=== PATIENT | female | born 1940 | race Caucasian/White ===

== ENCOUNTER 2016-07-27 22:10 | Emergency (ER) | payer MEDICARE, OTHER ==
[~2016-07-27] VITALS: Ht 152.4 cm; Wt 65.0 kg
[~2016-07-27 22:10] MED LIST: AMIO200T42 PO; ATOR20TA9 PO; CARV3.1212 PO; CARV3.122 PO; FURO-92 PO; GUAI600T22 PO; GUAI600T53; LISI5TAB7 PO; NYST1POW2 EXT; RIVA15TA PO; SPIR50TA2 PO
[2016-07-27] MEDS ORDERED: CARVEDILOL (22:29)
[2016-07-27] MEDS ORDERED: COMBIVENT (22:29)
[2016-07-27] MEDS ORDERED: ELIQUIS (22:29)
[2016-07-27 22:56] LABS: BLOOD UREA NITROGEN 29 mg/dL (7-18)
[2016-07-27 23:16] LABS: PATH.CAST-FLAG NOT PRESENT; SPERM-FLAG NOT PRESENT; SRC-FLAG NOT PRESENT; XTAL-FLAG NOT PRESENT; YLC-FLAG NOT PRESENT
[2016-07-27] MEDS ORDERED: CIPROFLOXACIN 500 MG TABLET PO ONE (23:30)
[2016-07-28] MEDS ORDERED: CIPROFLOXACIN 500 MG TABLET ONE (00:05)
[2016-07-28 00:24] VITALS: BP 101/67
== END 2016-07-28 00:27 | disposition home or self-care (01) ==
LOC: ED 23:59
DX: G30.1 Alzheimer's disease with late onset (principal); F02.81 Dementia in other diseases classified elsewhere, unspecified severity, with behavioral disturbance; N30.00 Acute cystitis without hematuria; R41.82 Altered mental status, unspecified
CPT/HCPCS: 36415; 80048; 81001; 82040; 85025; 87077; 87086; 87186; 99284

== ENCOUNTER 2017-06-11 21:52 | Emergency (ER) | payer MEDICARE, BC ==
[~2017-06-11] VITALS: Ht 160 cm; Wt 81.0 kg
[~2017-06-11 21:52] MED LIST changes: +ALBU2.5V NPPB; +APIX2.5T PO; +APIX5TAB PO; +CARV6.2512 PO; +CARVEDILOL; +CEFD300C37 PO; +COMBIVENT; +ELIQUIS; +FAMO20TA7 PO; +FURO-93 PO; +FURO20TA3 PO; -GUAI600T22 PO; +GUAI600T31 PO; -GUAI600T53; +GUAI600T80; +METO25TA35 PO; +POLY17PO5 PO; +PRED5TAB PO; +SPIR100T2 PO; +SPIR25TA PO
[2017-06-11 22:13] VITALS: BP 120/74
[2017-06-11 22:35] LABS: BASOPHILS # (AUTO) 0.01 x10^3/uL (0-0.1); BASOPHILS % (AUTO) 0 % (0-1); EOSINOPHILS # (AUTO) 0.03 x10^3/uL (0-0.4); EOSINOPHILS % (AUTO) 1 % (1-7); LYMPHOCYTES # (AUTO) 0.56 x10^3/uL (1-3.4); LYMPHOCYTES % (AUTO) 8 % (22-44); MD NO; MEAN CORPUSCULAR HEMOGLOBIN 32.7 pg (27.0-34.8); MEAN CORPUSCULAR HGB CONC 33.5 g/dL (32.4-35.8); MEAN CORPUSCULAR VOLUME 97.7 fL (80-100); MEAN PLATELET VOLUME 8.7 fL (7.4-10.4); MONOCYTES # (AUTO) 0.51 x10^3/uL (0.2-0.8); MONOCYTES % (AUTO) 7 % (2-9); NEUTROPHILS % (AUTO) 85 % (42-75); PLATELET COUNT 206 x10^3/uL (130-400); RED BLOOD COUNT 4.29 x10^6/uL (3.82-5.3); RED CELL DISTRIBUTION WIDTH 15.6 % (9.6-15.2)
[2017-06-11 22:41] LABS: INTERNATIONAL NORMALIZED RATIO 1.05 (0.93-1.1); PROTHROMBIN TIME 10.9 Seconds (9.6-11.5)
[2017-06-11 22:43] LABS: ALANINE AMINOTRANSFERASE 12 U/L (12-78); ALBUMIN 3.4 g/dL (3.4-5.0); ANION GAP 7 mmol/L (5-15); CALCIUM 9.3 mg/dL (8.5-10.1); CHLORIDE 109 mmol/L (98-107); CREATININE 0.89 mg/dL (0.55-1.02)
[2017-06-11 22:46] LABS: ALKALINE PHOSPHATASE 75 U/L (45-117); BILIRUBIN,TOTAL 1.2 mg/dL (0.2-1.0); TOTAL PROTEIN 6.8 g/dL (6.4-8.2)
[2017-06-11] MEDS ORDERED: METOPROLOL 1 MG/ML, 5ML ONE (22:48)
[2017-06-11 22:56] LABS: MICROSCOPIC NOT IND
[2017-06-11 22:58] LABS: CULTURE INDICATED? NO
[2017-06-11] MEDS ORDERED: METOPROLOL 1 MG/ML, 5ML IVPush PRN (23:00)
== END 2017-06-12 01:05 | disposition home or self-care (01) ==
LOC: ED 22:50
DX: R41.82 Altered mental status, unspecified (principal); R53.1 Weakness; Z86.73 Personal history of transient ischemic attack (TIA), and cerebral infarction without residual deficits; I48.91 Unspecified atrial fibrillation
CPT/HCPCS: 36415; 70450; 71045; 80053; 81003; 85025; 85610; 85730; 93005; 96374

== ENCOUNTER 2017-09-01 12:19 | Inpatient (IN) | payer MEDICARE, BC ==
[~2017-09-01] VITALS: Ht 167.6 cm; Wt 62.3 kg
[2017-09-01] MEDS ORDERED: SODIUM CHLORIDE 0.9% 1,000ML IVBOLUS ONE (12:30)
[2017-09-01] MEDS ORDERED: PLEASE ENTER HEIGHT AND WEIGHT MC SCH (12:30)
[2017-09-01] MEDS ORDERED: SODIUM CHLORIDE FLUSH 10ML SYR IVF ONE (12:30)
[2017-09-01 13:08] LABS: BASOPHILS # (AUTO) 0.01 x10^3/uL (0-0.1); BASOPHILS % (AUTO) 0 % (0-1); EOSINOPHILS # (AUTO) 0.04 x10^3/uL (0-0.4); EOSINOPHILS % (AUTO) 1 % (1-7); LYMPHOCYTES # (AUTO) 0.41 x10^3/uL (1-3.4); LYMPHOCYTES % (AUTO) 5 % (22-44); MD NO; MEAN CORPUSCULAR HEMOGLOBIN 30.2 pg (27.0-34.8); MEAN CORPUSCULAR HGB CONC 32.2 g/dL (32.4-35.8); MEAN CORPUSCULAR VOLUME 93.9 fL (80-100); MEAN PLATELET VOLUME 8.9 fL (7.4-10.4); MONOCYTES # (AUTO) 0.77 x10^3/uL (0.2-0.8); MONOCYTES % (AUTO) 9 % (2-9); NEUTROPHILS # (AUTO) 7.59 x10^3/uL (1.8-6.8); NEUTROPHILS % (AUTO) 86 % (42-75); PLATELET COUNT 240 x10^3/uL (130-400); RED BLOOD COUNT 3.68 x10^6/uL (3.82-5.3); RED CELL DISTRIBUTION WIDTH 16.4 % (9.6-15.2)
[2017-09-01 13:16] LABS: ALANINE AMINOTRANSFERASE 12 U/L (12-78); ALBUMIN 1.9 g/dL (3.4-5.0); ANION GAP 6 mmol/L (5-15); CALCIUM 7.9 mg/dL (8.5-10.1); CHLORIDE 112 mmol/L (98-107); CREATININE 0.63 mg/dL (0.55-1.02)
[2017-09-01 13:20] LABS: ALKALINE PHOSPHATASE 80 U/L (45-117); BILIRUBIN,TOTAL 0.7 mg/dL (0.2-1.0); TOTAL PROTEIN 5.4 g/dL (6.4-8.2)
[2017-09-01] MEDS ORDERED: CEFTRIAXONE PMX 1GM/50ML 50 ML IV ONE (16:30)
[2017-09-01] MEDS ORDERED: SODIUM CHLORIDE FLUSH 10ML SYR IVF PRN (17:00)
[2017-09-01 17:52] LABS: BASOPHILS # (AUTO) 0.02 x10^3/uL (0-0.1); BASOPHILS % (AUTO) 0 % (0-1); EOSINOPHILS # (AUTO) 0.11 x10^3/uL (0-0.4); EOSINOPHILS % (AUTO) 1 % (1-7); LYMPHOCYTES # (AUTO) 0.53 x10^3/uL (1-3.4); LYMPHOCYTES % (AUTO) 7 % (22-44); MD NO; MEAN CORPUSCULAR HGB CONC 31.8 g/dL (32.4-35.8); MEAN CORPUSCULAR VOLUME 94.4 fL (80-100); MEAN PLATELET VOLUME 9.1 fL (7.4-10.4); MONOCYTES # (AUTO) 0.61 x10^3/uL (0.2-0.8); MONOCYTES % (AUTO) 8 % (2-9); NEUTROPHILS # (AUTO) 6.66 x10^3/uL (1.8-6.8); NEUTROPHILS % (AUTO) 84 % (42-75); PLATELET COUNT 231 x10^3/uL (130-400); RED BLOOD COUNT 4.04 x10^6/uL (3.82-5.3); RED CELL DISTRIBUTION WIDTH 16.5 % (9.6-15.2)
[2017-09-01 17:55] LABS: ANION GAP 4 mmol/L (5-15); CHLORIDE 111 mmol/L (98-107); CREATININE 0.59 mg/dL (0.55-1.02)
[2017-09-01 20:00] VITALS: BP 98/67
[2017-09-01] MEDS: LACTATED RINGERS 1,000 ML IV SCH (20:14)
[2017-09-01] MEDS: PIPERACILLIN/TAZO/PMX 4.5GM 100 ML IV SCH (20:29)
[2017-09-01] MEDS ORDERED: APIXABAN 5 MG TABLET PO SCH (21:00)
[2017-09-01] MEDS: ATORVASTATIN 40 MG TABLET PO SCH (22:39)
[2017-09-01 23:45] LABS: CLOSTRIDIUM DIFFICILE ANTIGEN POSITIVE; CLOSTRIDIUM DIFFICILE TOXIN POSITIVE (Negative)
[2017-09-02] MEDS: PIPERACILLIN/TAZO/PMX 4.5GM 100 ML IV SCH ×3 (00:54→17:52)
[2017-09-02] MEDS: METRONIDAZOLE PMX 500MG/100ML 100 ML IV SCH ×3 (01:35→17:52)
[2017-09-02 01:57] VITALS: BP 100/69
[2017-09-02] MEDS ORDERED: ACET325S PO (06:11)
[2017-09-02] MEDS ORDERED: METO5AMP2 PO (06:11)
[2017-09-02] MEDS ORDERED: POTA20TA14 PO (06:11)
[2017-09-02] MEDS ORDERED: FLUT1AER INH (06:11)
[2017-09-02] MEDS ORDERED: MAGN400O7 PO (06:17)
[2017-09-02] MEDS ORDERED: TRAM100C3 PO (06:17)
[2017-09-02] MEDS: LACTATED RINGERS 1,000 ML IV SCH (06:24)
[2017-09-02 07:20] VITALS: BP 99/58
[2017-09-02 07:24] VITALS: BP 99/70
[2017-09-02] MEDS ORDERED: FUROSEMIDE 20 MG TABLET PO SCH (09:00)
[2017-09-02] MEDS ORDERED: OMNIPAQUE 350 MG/ML, 100ML BOTTLE ONE (10:17)
[2017-09-02 15:05] VITALS: BP 102/71
[2017-09-02] MEDS: NS + 20MEQ KCL 1,000 ML IV SCH (15:40)
[2017-09-02] MEDS: ENOXAPARIN 60 MG/0.6 ML SQ SCH (15:40)
[2017-09-02 20:13] VITALS: BP 105/73
[2017-09-02] MEDS: ATORVASTATIN 40 MG TABLET PO SCH (21:00)
[2017-09-03] MEDS: PIPERACILLIN/TAZO/PMX 4.5GM 100 ML IV SCH ×3 (00:47→17:38)
[2017-09-03] MEDS: METRONIDAZOLE PMX 500MG/100ML 100 ML IV SCH ×3 (01:49→19:14)
[2017-09-03 01:51] VITALS: BP 94/63
[2017-09-03] MEDS: ENOXAPARIN 60 MG/0.6 ML SQ SCH ×2 (04:14→17:38)
[2017-09-03 05:23] LABS: BASOPHILS # (AUTO) 0.06 x10^3/uL (0-0.1); BASOPHILS % (AUTO) 1 % (0-1); CALCIUM 8.5 mg/dL (8.5-10.1); CHLORIDE 112 mmol/L (98-107); EOSINOPHILS # (AUTO) 0.18 x10^3/uL (0-0.4); EOSINOPHILS % (AUTO) 3 % (1-7); LYMPHOCYTES # (AUTO) 0.38 x10^3/uL (1-3.4); LYMPHOCYTES % (AUTO) 7 % (22-44); MD NO; MEAN CORPUSCULAR HEMOGLOBIN 30.1 pg (27.0-34.8); MEAN CORPUSCULAR HGB CONC 31.9 g/dL (32.4-35.8); MEAN CORPUSCULAR VOLUME 94.2 fL (80-100); MONOCYTES # (AUTO) 0.41 x10^3/uL (0.2-0.8); MONOCYTES % (AUTO) 7 % (2-9); NEUTROPHILS # (AUTO) 4.57 x10^3/uL (1.8-6.8); NEUTROPHILS % (AUTO) 82 % (42-75); PLATELET COUNT 240 x10^3/uL (130-400); RED BLOOD COUNT 3.74 x10^6/uL (3.82-5.3); RED CELL DISTRIBUTION WIDTH 16.6 % (9.6-15.2)
[2017-09-03 05:27] LABS: ANION GAP 9 mmol/L (5-15); CREATININE 0.47 mg/dL (0.55-1.02)
[2017-09-03] MEDS: NS + 20MEQ KCL 1,000 ML IV SCH (06:24)
[2017-09-03 08:00] VITALS: BP 95/67
[2017-09-03] MEDS: DEXAMETHASONE 4 MG/ML, 1ML IVPush SCH ×3 (09:44→23:34)
[2017-09-03] MEDS: FUROSEMIDE 20 MG/2 ML IV SCH (09:44)
[2017-09-03] MEDS: POTASSIUM CHLORIDE 10 MEQ in D5%-0.45% NACL 1,000 ML IV SCH ×2 (11:08→23:34)
[2017-09-03 15:39] VITALS: BP 108/72
[2017-09-03 19:11] VITALS: BP 104/71
[2017-09-03] MEDS: ATORVASTATIN 40 MG TABLET PO SCH (21:00)
[2017-09-04] MEDS: PIPERACILLIN/TAZO/PMX 4.5GM 100 ML IV SCH ×3 (01:30→17:27)
[2017-09-04 02:12] VITALS: BP 96/68
[2017-09-04] MEDS: METRONIDAZOLE PMX 500MG/100ML 100 ML IV SCH ×3 (02:23→19:53)
[2017-09-04] MEDS: DEXAMETHASONE 4 MG/ML, 1ML IVPush SCH ×2 (05:29→11:40)
[2017-09-04] MEDS: ENOXAPARIN 60 MG/0.6 ML SQ SCH ×2 (05:30→18:47)
[2017-09-04 06:48] VITALS: BP 99/74
[2017-09-04] MEDS: FUROSEMIDE 20 MG/2 ML IV SCH (10:17)
[2017-09-04 15:00] LABS: ALANINE AMINOTRANSFERASE 10 U/L (12-78); ALBUMIN 1.9 g/dL (3.4-5.0); ANION GAP 7 mmol/L (5-15); CALCIUM 9.4 mg/dL (8.5-10.1); CHLORIDE 113 mmol/L (98-107); CREATININE 0.68 mg/dL (0.55-1.02)
[2017-09-04 15:02] LABS: ALKALINE PHOSPHATASE 77 U/L (45-117); BILIRUBIN,TOTAL 0.4 mg/dL (0.2-1.0); TOTAL PROTEIN 5.7 g/dL (6.4-8.2)
[2017-09-04 15:14] VITALS: BP 91/67
[2017-09-04 18:45] VITALS: BP 96/64
[2017-09-04] MEDS: ATORVASTATIN 40 MG TABLET PO SCH (20:53)
[2017-09-04] MEDS: POTASSIUM CHLORIDE 10 MEQ in D5%-0.45% NACL 1,000 ML IV SCH (23:27)
[2017-09-04] MEDS ORDERED: DEXAMETHASONE 4 MG/ML, 1ML IVPush SCH (23:30)
[2017-09-05] MEDS: PIPERACILLIN/TAZO/PMX 4.5GM 100 ML IV SCH ×3 (00:55→17:32)
[2017-09-05 01:04] VITALS: BP 107/74
[2017-09-05] MEDS: METRONIDAZOLE PMX 500MG/100ML 100 ML IV SCH ×3 (03:23→19:44)
[2017-09-05 04:37] LABS: BASOPHILS % (AUTO) 0 % (0-1); EOSINOPHILS % (AUTO) 0 % (1-7); LYMPHOCYTES # (AUTO) 0.28 x10^3/uL (1-3.4); LYMPHOCYTES % (AUTO) 6 % (22-44); MD NO; MEAN CORPUSCULAR HEMOGLOBIN 29.9 pg (27.0-34.8); MEAN CORPUSCULAR HGB CONC 31.9 g/dL (32.4-35.8); MEAN CORPUSCULAR VOLUME 93.9 fL (80-100); MEAN PLATELET VOLUME 8.6 fL (7.4-10.4); MONOCYTES # (AUTO) 0.05 x10^3/uL (0.2-0.8); MONOCYTES % (AUTO) 1 % (2-9); NEUTROPHILS # (AUTO) 4.63 x10^3/uL (1.8-6.8); NEUTROPHILS % (AUTO) 93 % (42-75); PLATELET COUNT 262 x10^3/uL (130-400); RED BLOOD COUNT 3.61 x10^6/uL (3.82-5.3); RED CELL DISTRIBUTION WIDTH 16.3 % (9.6-15.2)
[2017-09-05 06:45] VITALS: BP 111/68
[2017-09-05] MEDS: ENOXAPARIN 60 MG/0.6 ML SQ SCH (09:21)
[2017-09-05] MEDS: FUROSEMIDE 20 MG/2 ML IV SCH (09:21)
[2017-09-05] MEDS: POTASSIUM CHLORIDE 10 MEQ in D5%-0.45% NACL 1,000 ML IV SCH (11:20)
[2017-09-05] MEDS: VANCOMYCIN 50 MG/ML ORAL SUSP PO SCH ×3 (11:49→23:30)
[2017-09-05 16:00] VITALS: BP 109/66
[2017-09-05 18:46] VITALS: BP 98/66
[2017-09-05] MEDS: ATORVASTATIN 40 MG TABLET PO SCH (19:44)
[2017-09-05] MEDS: APIXABAN 5 MG TABLET PO SCH (19:45)
[2017-09-06] MEDS: SODIUM CHLORIDE 0.9% 1,000 ML IV SCH ×3 (00:22→23:59)
[2017-09-06 01:06] VITALS: BP 100/69
[2017-09-06] MEDS: PIPERACILLIN/TAZO/PMX 4.5GM 100 ML IV SCH ×3 (01:18→19:18)
[2017-09-06] MEDS: METRONIDAZOLE PMX 500MG/100ML 100 ML IV SCH ×3 (03:43→20:41)
[2017-09-06] MEDS: VANCOMYCIN 50 MG/ML ORAL SUSP PO SCH ×4 (05:30→23:30)
[2017-09-06 06:03] LABS: BASOPHILS # (AUTO) 0.01 x10^3/uL (0-0.1); BASOPHILS % (AUTO) 0 % (0-1); EOSINOPHILS # (AUTO) 0.04 x10^3/uL (0-0.4); EOSINOPHILS % (AUTO) 1 % (1-7); LYMPHOCYTES # (AUTO) 0.46 x10^3/uL (1-3.4); LYMPHOCYTES % (AUTO) 11 % (22-44); MD NO; MEAN CORPUSCULAR HEMOGLOBIN 29.9 pg (27.0-34.8); MEAN CORPUSCULAR HGB CONC 32.2 g/dL (32.4-35.8); MEAN PLATELET VOLUME 8.6 fL (7.4-10.4); MONOCYTES # (AUTO) 0.29 x10^3/uL (0.2-0.8); MONOCYTES % (AUTO) 7 % (2-9); NEUTROPHILS # (AUTO) 3.53 x10^3/uL (1.8-6.8); NEUTROPHILS % (AUTO) 82 % (42-75); PLATELET COUNT 248 x10^3/uL (130-400); RED BLOOD COUNT 3.66 x10^6/uL (3.82-5.3); RED CELL DISTRIBUTION WIDTH 16.6 % (9.6-15.2)
[2017-09-06 06:09] LABS: ANION GAP 5 mmol/L (5-15); CALCIUM 8.2 mg/dL (8.5-10.1); CHLORIDE 110 mmol/L (98-107); CREATININE 0.52 mg/dL (0.55-1.02)
[2017-09-06] MEDS ORDERED: POTASSIUM CHLORIDE 40 MEQ in SODIUM CHLORIDE 0.9% 500 ML IV ONE (07:00)
[2017-09-06 08:10] VITALS: BP 91/69
[2017-09-06] MEDS: APIXABAN 5 MG TABLET PO SCH ×2 (09:00→20:41)
[2017-09-06] MEDS: FUROSEMIDE 20 MG/2 ML IV SCH (09:00)
[2017-09-06 15:30] VITALS: BP 98/76
[2017-09-06 18:37] VITALS: BP 103/73
[2017-09-06] MEDS: ATORVASTATIN 40 MG TABLET PO SCH (20:41)
[2017-09-07 01:14] VITALS: BP 109/72
[2017-09-07] MEDS: PIPERACILLIN/TAZO/PMX 4.5GM 100 ML IV SCH ×3 (03:17→19:25)
[2017-09-07] MEDS: METRONIDAZOLE PMX 500MG/100ML 100 ML IV SCH ×3 (04:45→21:34)
[2017-09-07] MEDS: VANCOMYCIN 50 MG/ML ORAL SUSP PO SCH ×4 (04:45→23:30)
[2017-09-07] MEDS ORDERED: POTASSIUM CHLORIDE 20 MEQ TAB.ER.PRT PO ONE (07:30)
[2017-09-07 08:12] VITALS: BP 116/83
[2017-09-07 09:00] LABS: ANION GAP 5 mmol/L (5-15); CALCIUM 8.1 mg/dL (8.5-10.1); CHLORIDE 114 mmol/L (98-107); CREATININE 0.45 mg/dL (0.55-1.02)
[2017-09-07] MEDS: APIXABAN 5 MG TABLET PO SCH ×2 (09:00→21:34)
[2017-09-07] MEDS: LACTOBACILLUS CHEW TABLET PO SCH ×3 (09:00→21:35)
[2017-09-07 14:40] VITALS: BP 120/84
[2017-09-07] MEDS: CARVEDILOL 3.125 MG TABLET PO SCH (16:53)
[2017-09-07 19:18] VITALS: BP 114/60
[2017-09-07] MEDS: ATORVASTATIN 40 MG TABLET PO SCH (21:35)
[2017-09-07] MEDS: SODIUM CHLORIDE 0.9% 1,000 ML IV SCH (21:36)
[2017-09-08 00:45] VITALS: BP 110/75
[2017-09-08] MEDS: PIPERACILLIN/TAZO/PMX 4.5GM 100 ML IV SCH (03:16)
[2017-09-08] MEDS: SODIUM CHLORIDE 0.9% 1,000 ML IV SCH (03:17)
[2017-09-08] MEDS: VANCOMYCIN 50 MG/ML ORAL SUSP PO SCH (05:20)
[2017-09-08] MEDS: CARVEDILOL 3.125 MG TABLET PO SCH (05:20)
[2017-09-08] MEDS: METRONIDAZOLE PMX 500MG/100ML 100 ML IV SCH (05:20)
[2017-09-08 07:10] VITALS: BP 113/91
[2017-09-08] MEDS: APIXABAN 5 MG TABLET PO SCH (08:01)
[2017-09-08] MEDS: LACTOBACILLUS CHEW TABLET PO SCH (08:01)
[2017-09-08 19:18] VITALS: BP 105/71
[2017-09-09 14:03] VITALS: BP 107/74
[2017-09-10] MEDS: morphine SULFATE ORAL.CONC 20 MG/ML BC PRN (12:17)
[2017-09-11] MEDS: VANCOMYCIN 50 MG/ML ORAL SUSP PO SCH ×3 (12:16→20:17)
[2017-09-11] MEDS ORDERED: LORazepam 2 MG/ML, 1ML ONE (12:34)
[2017-09-11] MEDS: LACTOBACILLUS CHEW TABLET PO SCH ×2 (15:37→20:17)
[2017-09-11] MEDS: morphine SULFATE ORAL.CONC 20 MG/ML BC PRN (15:53)
[2017-09-12] MEDS: VANCOMYCIN 50 MG/ML ORAL SUSP PO SCH ×4 (05:51→21:00)
[2017-09-12] MEDS: LACTOBACILLUS CHEW TABLET PO SCH ×3 (08:28→21:00)
[2017-09-12] MEDS: LORazepam INTENSOL 2 MG/ML BC PRN ×3 (11:56→23:37)
[2017-09-12] MEDS: morphine SULFATE ORAL.CONC 20 MG/ML BC PRN ×2 (13:02→22:29)
[2017-09-13] MEDS: LORazepam INTENSOL 2 MG/ML BC PRN ×6 (02:36→14:33)
[2017-09-13] MEDS: VANCOMYCIN 50 MG/ML ORAL SUSP PO SCH ×4 (06:00→21:00)
[2017-09-13] MEDS: LACTOBACILLUS CHEW TABLET PO SCH ×3 (08:58→21:00)
[2017-09-13] MEDS: morphine SULFATE ORAL.CONC 20 MG/ML BC PRN ×2 (09:08→12:21)
[2017-09-13] MEDS: MORPHINE SULFATE 4 MG/ML, 1ML IVPush PRN ×2 (14:53→23:46)
[2017-09-13] MEDS: LORazepam 2 MG/ML, 1ML IVPush PRN ×2 (18:47→21:21)
[2017-09-14] MEDS: LORazepam 2 MG/ML, 1ML IVPush PRN ×4 (01:12→23:25)
[2017-09-14] MEDS: VANCOMYCIN 50 MG/ML ORAL SUSP PO SCH ×4 (05:48→21:00)
[2017-09-14] MEDS: LACTOBACILLUS CHEW TABLET PO SCH ×3 (08:45→21:00)
[2017-09-14] MEDS: MORPHINE SULFATE 4 MG/ML, 1ML IVPush PRN (15:50)
[2017-09-15] MEDS: LORazepam 2 MG/ML, 1ML IVPush PRN ×4 (04:56→23:28)
[2017-09-15] MEDS: VANCOMYCIN 50 MG/ML ORAL SUSP PO SCH ×4 (04:58→19:38)
[2017-09-15] MEDS: LACTOBACILLUS CHEW TABLET PO SCH ×3 (08:43→19:38)
[2017-09-15] MEDS: MORPHINE SULFATE 4 MG/ML, 1ML IVPush PRN (17:26)
[2017-09-16] MEDS: VANCOMYCIN 50 MG/ML ORAL SUSP PO SCH ×4 (04:38→20:34)
[2017-09-16] MEDS: LORazepam 2 MG/ML, 1ML IVPush PRN ×5 (05:07→20:33)
[2017-09-16] MEDS: LACTOBACILLUS CHEW TABLET PO SCH ×3 (09:00→20:34)
[2017-09-17] MEDS: VANCOMYCIN 50 MG/ML ORAL SUSP PO SCH ×5 (03:41→20:39)
[2017-09-17] MEDS: LORazepam 2 MG/ML, 1ML IVPush PRN ×3 (03:41→21:48)
[2017-09-17] MEDS: LACTOBACILLUS CHEW TABLET PO SCH ×3 (08:11→19:19)
[2017-09-17] MEDS ORDERED: MORPHINE SULFATE 4 MG/ML, 1ML ONE (11:57)
[2017-09-17] MEDS: morphine SULFATE 10 MG/ML, 1ML IVPush PRN ×3 (12:04→23:28)
[2017-09-18] MEDS: LORazepam 2 MG/ML, 1ML IVPush PRN ×2 (00:50→05:35)
[2017-09-18] MEDS: morphine SULFATE 10 MG/ML, 1ML IVPush PRN (04:16)
[2017-09-18] MEDS: morphine SULFATE ORAL.CONC 20 MG/ML BC PRN (07:25)
[2017-09-18] MEDS: VANCOMYCIN 50 MG/ML ORAL SUSP PO SCH (07:26)
[2017-09-18] MEDS: LACTOBACILLUS CHEW TABLET PO SCH (07:26)
[2017-09-18] MEDS ORDERED: morphine SULFATE ORAL.CONC 20 MG/ML BC PRN (08:00)
== END 2017-09-18 09:27 | disposition expired | DRG 871 ==
LOC: ED 16:47 → EDIP 16:48 → ED 16:53 → 5SO 19:30 → 3NE 09-03 14:59 → 3NW 09-11 04:49
PROVIDERS: ADMIT Internal Medicine; ATTEND Internal Medicine
DX: A41.9 Sepsis, unspecified organism (principal); E43 Unspecified severe protein-calorie malnutrition; A04.72 Enterocolitis due to Clostridium difficile, not specified as recurrent; L03.211 Cellulitis of face; D68.69 Other thrombophilia; E87.0 Hyperosmolality and hypernatremia; I50.20 Unspecified systolic (congestive) heart failure; B99.9 Unspecified infectious disease; I65.21 Occlusion and stenosis of right carotid artery; D64.9 Anemia, unspecified; E86.1 Hypovolemia; E87.6 Hypokalemia; F03.90 Unspecified dementia, unspecified severity, without behavioral disturbance, psychotic disturbance, mood disturbance, and anxiety; M27.2 Inflammatory conditions of jaws; I08.0 Rheumatic disorders of both mitral and aortic valves; I25.10 Atherosclerotic heart disease of native coronary artery without angina pectoris; I25.5 Ischemic cardiomyopathy; K11.21 Acute sialoadenitis; I48.2 Chronic atrial fibrillation; R13.10 Dysphagia, unspecified; Z51.5 Encounter for palliative care; Z86.711 Personal history of pulmonary embolism; Z86.73 Personal history of transient ischemic attack (TIA), and cerebral infarction without residual deficits; Z79.01 Long term (current) use of anticoagulants; Z95.5 Presence of coronary angioplasty implant and graft; Z68.22 Body mass index [BMI] 22.0-22.9, adult; Z87.891 Personal history of nicotine dependence
CPT/HCPCS: 36415; 70491; 70496; 70498; 71045; 80048; 80053; 83735; 83880; 84100; 85025; 87081; 87324; 87880; 93005; 93306; 96360; 96361; J1100; J1650; J2543; J3370; J3480; Q9967; J1940; J2060; J2270; J7030; J7040; J7120